=== PATIENT | male | born 1960 | race Caucasian/White ===

== ENCOUNTER → 2016-08-24 | Outpatient (CLI) | payer OTHER ==
[~2016-08-24] MED LIST: IBUPROFEN400 MG PO; LIPITOR TAB 1010 MG PO; LODINE CAP 300300 MG PO; OMEPRAZOLE20 MG PO; PERCOCET 5-3251 EACH PO; PHENERGAN 12.12.5 M1 PO; STOOL SOFTENER250 MG PO
== END ==
LOC: RAD 14:51
DX: M72.2 Plantar fascial fibromatosis (principal)
CPT/HCPCS: 73630